=== PATIENT | female | born 1995 | race Caucasian/White ===

== ENCOUNTER 2018-09-04 16:59 | Emergency (ER) | payer BC, OTHER ==
[2018-09-04 18:12] VITALS: BP 116/63
--- NOTE | 2018-09-04 18:20 | UC ---
UC General HPI - HPI Summary HPI Summary: pt c/o cough with chest chest congestion and R rib soreness x 1 week. no fever, sob or wheezing. no hx asthma. - History of Current Complaint Chief Complaint: UCRespiratory Stated Complaint: COUGH Time Seen by Provider: 09/04/18 18:10 Hx Obtained From: Patient Hx Last Menstrual Period: 09/03/18 Pain Intensity: 6 Associated Signs & Symptoms: Negative: Chest Pain, Fever, Hemoptysis, SOB, Wheezing - Allergy/Home Medications Allergies/Adverse Reactions: Allergies Allergy/AdvReac Type Severity Reaction Status Date / Time No Known Allergies Allergy Verified 09/04/18 18:12 Home Medications: Home Medications NK [No Home Medications Reported] 09/04/18 [History Confirmed 09/04/18] PMH/Surg Hx/FS Hx/Imm Hx Previously Healthy: Yes - Surgical History Surgical History: Yes Surgery Procedure, Year, and Place: [facility] 2017 - Social History Alcohol Use: None Substance Use Type: None Smoking Status (MU): Never Smoked Tobacco Review of Systems All Other Systems Reviewed And Are Negative: Yes Constitutional: Positive: Negative Skin: Positive: Negative Eyes: Positive: Negative ENT: Positive: Negative Respiratory: Positive: Cough. Negative: Shortness Of Breath Cardiovascular: Negative: Palpitations, Chest Pain Gastrointestinal: Positive: Negative Genitourinary: Positive: Negative Motor: Positive: Negative Neurovascular: Positive: Negative Musculoskeletal: Negative: Calf Tenderness, Edema Neurological: Positive: Negative Psychological: Positive: Negative Is Patient Immunocompromised?: No Physical Exam Triage Information Reviewed: Yes Appearance: Well-Appearing Vital Signs: Initial Vital Signs Temp 98.0 F 09/04/18 18:08 Pulse 76 09/04/18 18:08 Resp 18 09/04/18 18:08 BP 116/63 09/04/18 18:08 Pulse Ox 100 09/04/18 18:08 Vital Signs Reviewed: Yes Eyes: Positive: Conjunctiva Clear ENT: Positive: Pharynx normal, TMs normal. Negative: Nasal congestion, Nasal drainage Neck: Positive: Supple, Nontender, No Lymphadenopathy Respiratory: Positive: Lungs clear, Normal breath sounds, No respiratory distress, Other: - chest has no gross deformity, swelling or discoloration. R mid axillary tenderness to palpation. Cardiovascular: Positive: RRR, No Murmur Abdomen Description: Positive: Nontender, No Organomegaly, Soft Bowel Sounds: Positive: Present Musculoskeletal: Positive: ROM Intact, No Edema, Other: - No calf tenderness or cords. Neurological: Positive: Alert Psychological: Positive: Age Appropriate Behavior Skin Exam: Normal Course/Dx - Differential Dx - Multi-Symptom Differential Diagnoses: Other - pneumonia, pleurisy, bronchitis, chest wall pain , PE - Diagnoses Provider Diagnosis: Bronchitis, Acute chest wall pain Discharge - Sign-Out/Discharge Documenting (check all that apply): Patient Departure All imaging exams completed and their final reports reviewed: No Studies - Discharge Plan Condition: Stable Disposition: HOME Patient Education Materials: Acute Bronchitis (ED), Chest Wall Pain (ED) Referrals: Donna Lawler MD [Primary Care Provider] - 5 Days - Billing Disposition and Condition Condition: STABLE Disposition: Home
== END 2018-09-04 18:29 | disposition home or self-care (01) ==
LOC: UCCORT 16:59
DX: J40 Bronchitis, not specified as acute or chronic (principal); R07.89 Other chest pain
CPT/HCPCS: 99201; G0463

== ENCOUNTER 2024-07-24 22:59 | Inpatient (IN) ==
[2024-07-24] MEDS ORDERED: Lidocaine 1% VIAL 10 MG/ML 30 ML VIAL INJ PRN (23:54)
[2024-07-25 01:07] LABS: ABS Basophils 0.1 10^3/uL (0.0-0.1); ABS Eosinophils 0.1 10^3/uL (0.0-0.5); ABS Lymphocytes 2.8 10^3/uL (1.0-4.8); ABS Monocytes 1.1 10^3/uL (0.0-0.9); ABS Neutrophils 11.3 10^3/uL (1.5-7.6); ABS Nucleated RBC 0.01 10^3/ul; Eosinophil % 0.9 %; Hematocrit 35.9 % (35-45); Hemoglobin 11.9 g/dL (11.5-14.3); Lymphocyte % 18.4 %; Mean Corpuscular Hemoglobin 27.7 pg (27-33); Mean Corpuscular Hgb Conc 33.1 g/dL (31-36); Mean Corpuscular Volume 83.8 fL (80-97); Mean Platelet Volume 8.8 fL (7.5-11.2); Platelet Count 331 10^3/uL (150-450); Red Blood Count 4.28 10^6/uL (3.63-4.92); Red Cell Distribution Width 14.6 % (12-17); White Blood Count 15.4 10^3/uL (3.8-11.8)
[2024-07-25 01:15] LABS: Urine Benzodiazepine Screen None Detected (None Detect); Urine Cannabinoids Screen Presumptive Positive (None Detect); Urine Opiates Screen None Detected (None Detect)
[2024-07-25 01:16] LABS: Albumin 3.6 g/dL (3.2-5.2); Albumin/Globulin Ratio 1.5 (1-3); Calcium 9.1 mg/dL (8.6-10.3); Creatinine, Serum 0.54 mg/dL (0.51-0.95); Globulin 2.4 g/dL (2-4); Total Bilirubin 0.3 mg/dL (0.2-1.0); eGFR CKD-EPI 129.3 (>60)
[2024-07-25] MEDS: Lactated Ringers 1000 ml BAG 1,000 ML IV ONE (01:27)
[2024-07-25] MEDS: Oxytocin 10 UNITS/ML 1 ML VIAL IM ONE (01:58)
[2024-07-25] MEDS ORDERED: Glycerin ADULT 2.4 gm SUPP PR PRN (02:13)
[2024-07-25] MEDS: Buffered Lidocaine 1% SYRIN 1 ml INTRADERM ONE (02:59)
[2024-07-25] MEDS: Lactated Ringers 1000 ml BAG 1,000 ML IV SCH (02:59)
[2024-07-25] MEDS: Oxytocin in LR 0 MILLI.UNIT/0 ML BAG IV ONE (02:59)
[2024-07-25] MEDS ORDERED: Lactated Ringers 1000 ml BAG 1,000 ML IV SCH (03:00)
[2024-07-25] MEDS: Witch Hazel PAD JAR TOPICAL PRN (03:27)
[2024-07-25] MEDS: Dibucaine 1% OINT 28.35 GM TUBE PR PRN (03:27)
[2024-07-25] MEDS: Oxytocin in LR 20,000 MILLI.UNIT/1,000 ML BAG IV SCH (05:10)
[2024-07-25] MEDS: fentaNYL 100 mcg/2 ml 50 MCG/ML VIAL ONE (05:24)
[2024-07-25] MEDS ORDERED: ceFAZolin VIAL 2 GM in NS 0.9% 100 ml BAG 100 ML IVPB ONE (05:45)
[2024-07-25] MEDS: ceFAZolin 2 GM/50 ML BAG IV ONE (06:22)
[2024-07-25] MEDS: Oxytocin in LR 20,000 MILLI.UNIT/1,000 ML BAG IV ONE (07:16)
[2024-07-25] MEDS: fentaNYL 100 mcg/2 ml 50 MCG/ML VIAL IV SLOW PU ONE (07:17)
[2024-07-25] MEDS: Methylergonovine 0.2 mg AMPULE 1 ml AMP ONE (07:17)
[2024-07-26 06:54] LABS: ABS Basophils 0.1 10^3/uL (0.0-0.1); ABS Eosinophils 0.2 10^3/uL (0.0-0.5); ABS Lymphocytes 3.2 10^3/uL (1.0-4.8); ABS Monocytes 0.8 10^3/uL (0.0-0.9); ABS Neutrophils 6.9 10^3/uL (1.5-7.6); Eosinophil % 1.8 %; Hematocrit 23.2 % (35-45); Hemoglobin 7.8 g/dL (11.5-14.3); Lymphocyte % 28.5 %; Mean Corpuscular Hemoglobin 28.3 pg (27-33); Mean Corpuscular Hgb Conc 33.7 g/dL (31-36); Mean Platelet Volume 7.8 fL (7.5-11.2); Platelet Count 240 10^3/uL (150-450); Red Blood Count 2.77 10^6/uL (3.63-4.92); Red Cell Distribution Width 14.5 % (12-17); White Blood Count 11.2 10^3/uL (3.8-11.8)
[2024-07-26 08:55] VITALS: BP 116/68
[2024-07-26 11:43] LABS: RPR Nonreactive (Nonreactive)
[2024-07-30 16:53] LABS: T.Pallidum TP-PA Negative (Negative)
== END 2024-07-26 13:15 | disposition home or self-care (01) | DRG 560 ==
LOC: MCHOBOUT 22:59 → MCHOB 23:58
PROVIDERS: ADMIT Obstetrics & Gynecology; ATTEND Obstetrics & Gynecology